=== PATIENT | male | born 1995 | race Caucasian/White ===

== ENCOUNTER 2017-10-29 16:40 | Emergency (ER) | payer MEDICAID, SELFPAY ==
--- NOTE | 2017-10-29 16:40 | DT_ITS ---
This patient was seen during an EMR downtime October 26, 2017 - November 02, 2017. This patient may have a combination of paper and electronic documentation or all paper documentation. All documentation is viewable within the e-chart portion of [facility] for each patient visit.
--- NOTE | 2017-10-29 17:20 | CT_ITS ---
STUDY: CT ABDOMEN AND PELVIS WITHOUT CONTRAST REASON FOR EXAM: Male, 22 years old. Left flank pain RADIATION DOSAGE (If Supplied By Facility): CTDIvol = ( ) mGy, DLP = ( ) mGycm TECHNIQUE: Transaxial images were obtained from the dome of the diaphragm to the symphysis pubis without oral contrast, and without intravenous contrast. Sagittal and coronal images were reconstructed. Individualized dose optimization techniques were used for this CT. COMPARISON: None. FINDINGS: The visualized lung bases are unremarkable. The visualized portions of the heart are within normal limits. Normal liver. Normal gallbladder and extrahepatic biliary system. Normal spleen. Normal pancreas. Normal bilateral adrenal glands. Normal right kidney. There are calculi within the lower pole of the left renal collecting system. There is severe dilatation of the left renal collecting system and hydroureter without ureteral calculus possibly due to recent passage of the stone. Normal visualized stomach. Normal small intestine. Normal colon. The appendix is visualized and appears normal. Normal abdominal aorta. Normal inferior vena cava. Normal retroperitoneum. Normal urinary bladder. Normal abdominal wall. Normal osseous structures. CT/Abdomen/Pelvis without Cont IMPRESSION: Left nephrolithiasis Severe left hydroureteronephrosis without appreciable ureteral calculus of uncertain etiology possibly due to recent passage of a stone however clinical correlation is recommended Electronically Signed: Homero Craig MD at 19:12 EDT , Service support ,
[2017-10-31 12:10] LABS: Bacteria 0 SEEN /hpf (None Seen); Color, Urine Yellow (Yellow); Glucose, Dipstick NEGATIVE (Normal); Ketone-Dipstick Negative (Negative); Leukocyte Esterase-Dipstick Negative /ul (Negative); Mucous, Urine 0 SEEN /hpf (<or=2+); Nitrite-Dipstick Negative (Negative); Occult Blood-Urine 25 /ul (Negative); Protein-Dipstick 15 mg/dl (Negative); Red Blood Cells-Urine 0-5 SEEN /hpf (0-5); Squamous Epithelial Cells - UA 0 SEEN /hpf (0-5); Urine Bilirubin Dipstick Negative (Negative); Urine Clarity Clear (Clear); Urine Urobilinogen Normal (Normal); White Blood Cells 0 SEEN /hpf (0-5)
[2017-10-31 12:43] LABS: AST(SGOT) 32 U/L (15-37); Alanine Aminotransfer ALT/SGPT 24 U/L (16-61); Albumin, Serum 3.8 g/dL (3.2-5.0); Alkaline Phosphatase 79 U/L (45-117); Anion Gap 9 (5-15); BUN 14 mg/dL (7-18); BUN/Creat Ratio 16.1 RATIO (10-20); Calcium,Total 8.7 mg/dL (8.5-10.1); Chloride 107 mmol/L (98-107); Creatinine, Serum 0.87 mg/dL (0.70-1.30); EST Glomerular Filtration Rate 116 mL/min (>60); Est Glom Filt Rate - Afr Amer 141 mL/min (>60); Globulin 3.8 g/dL (2.2-4.2); Glucose 94 mg/dL (74-106); Lipase 151 U/L (73-393); Potassium 4.9 mmol/L (3.5-5.1); Protein, Total 7.6 g/dL (6.4-8.2); Sodium Level 140 mmol/L (136-145)
[2017-10-31 13:49] LABS: Hematocrit 45.6 % (40-54); Mean Corp Hgb Conc 35.1 g/gl (32-36); Mean Corpuscular Hgb 31.5 pg (27.0-32.0); Mean Corpuscular Volume 89.8 fL (80-94); Mean Platelet Vol. 11.1 fl (6.2-12.0); Monocyte% 7.8 % (0-10); Neutrophil % 52.7 % (47-70); POSITIVE COUNT NO; POSITIVE DIFFERENTIAL NO; POSITIVE MORPHOLOGY NO; Platelet Count 270 K/mm3 (150-450); RBC Distribution Width CV 12.6 % (11.6-14.6); RBC Distribution Width SD 41.3 fl (35.1-43.9); Red Blood Count 5.08 M/mm3 (4.6-6.2); White Blood Count 6.1 K/mm3 (4.4-11.0)
[2017-10-31 13:50] LABS: Absolute Lymphocyte Count 1.94 X10^3/ul (0.83-4.51); Absolute Neutrophil Count 3.2 X10^3/uL (2.0-7.7); Basophil# 0.03 X10^3/uL; Basophil% 0.5 % (0-1); Eosinophil# 0.41 X10^3/uL; Eosinophils% 6.8 % (0-5); Lymphocyte # 1.94 X10^3/ul (4.0); Monocyte# 0.47 X10^3/uL
== END 2017-10-29 20:30 | disposition home or self-care (01) ==
LOC: ED 10-30 10:27
PROVIDERS: Emergency Provider Emergency Medicine; Family Provider Family Medicine; PCP Family Medicine
DX: N20.1 Calculus of ureter (principal); Z72.0 Tobacco use
CPT/HCPCS: 36415; 74176; 80053; 81001; 83690; 85025; 87086; 87088; 96361; 96374; 96375; 99283; A4216; J2405

== ENCOUNTER 2019-01-31 00:56 | Emergency (ER) | payer MEDICAID, SELFPAY ==
[2019-01-31 00:57] VITALS: BP 147/93; PULSE 82; RESP 16; TEMP 36.8; O2SAT 98; BMI 26.4
--- NOTE | 2019-01-31 01:37 | ED.RN ---
ANSWERED CALL LIGHT. PT STATES HE DOESN'T WANT TO BE SEEN BY MD HE HAS TO WALK HOME AND GET TO WORK AT 8 SO HE WILL ONLY GET 5 HRS OF SLEEP. EDUCATED PT, PROVIDED EMOTIONAL SUPPORT AND ANSWERED ALL QUESTIONS. PT AMBULATED TO LOBBY WITH A STEADY AND INDEPENDENT GAIT.
== END 2019-01-31 01:37 | disposition left against medical advice (07) ==
LOC: ED 01:51
PROVIDERS: Emergency Provider Emergency Medicine; Family Provider Family Medicine; PCP Family Medicine
DX: R69 Illness, unspecified (principal); Z53.21 Procedure and treatment not carried out due to patient leaving prior to being seen by health care provider
CPT/HCPCS: 99281

== ENCOUNTER 2022-03-30 18:36 | Emergency (ER) | payer MEDICAID, SELFPAY ==
[2022-03-30 18:37] VITALS: BP 132/100; PULSE 73; RESP 16; TEMP 36.3; O2SAT 100; BMI 25.1
--- NOTE | 2022-03-30 18:48 | CT_ITS ---
STUDY: CT ABDOMEN AND PELVIS WITHOUT CONTRAST REASON FOR EXAM: Male, 26 years old. Left flank pain for one day. History of kidney stones. RADIATION DOSAGE (If Supplied By Facility): CTDIvol = ( 6.94 ) mGy, DLP = ( 346.72 ) mGycm TECHNIQUE: Transaxial images were obtained from the dome of the diaphragm to the symphysis pubis without oral contrast, and without intravenous contrast. Sagittal and coronal images were reconstructed. Individualized dose optimization techniques were used for this CT. COMPARISON: October 11, 2016 FINDINGS: The visualized lung bases are unremarkable. The visualized portions of the heart are within normal limits. Normal liver. Normal gallbladder and extrahepatic biliary system. Normal spleen. Normal pancreas. Normal bilateral adrenal glands. Normal right kidney. Normal right ureter. There is enlargement of the left kidney. There is marked dilatation of the renal collecting system and renal pelvis. There is vague density seen within the lower pole collecting system with an adjacent 3 mm nonobstructing calculus density is seen in the region of the UPJ which appears linear in shape with lucent center. This measures 3.2 x 1 x 0.8 cm. The ureter is unremarkable. Normal visualized stomach. Normal small intestine. Normal colon. Question prior appendectomy. Normal abdominal aorta. Normal inferior vena cava. Normal retroperitoneum. Normal urinary bladder. Normal prostate. No pelvic lymphadenopathy. No free air or free fluid is seen within the peritoneal cavity. Normal abdominal wall. Normal osseous structures. CT/Abdomen/Pelvis without Cont IMPRESSION: 1. Distended left renal collecting system with increased density. The degree of distention is similar to the previous examination. There is however now vague high density material in the lower pole collecting system adjacent to a stable calcification as well as renal pelvis. It is uncertain whether this represents calcification or hematoma. 2. Otherwise stable abdominal and pelvic findings Electronically Signed: Gerardo Newberry DO at 20:45 EST Reading Location ID and State: [id number] Tel [phone], Service support ,
[2022-03-30] MEDS: Ketorolac 15 MG/ML Vial IV (18:53)
[2022-03-30] MEDS: Ondansetron 4 MG/2 ML Vial IV (18:53)
[2022-03-30] MEDS: 0.9% Normal Saline 1,000 ML 250 ML IV (18:57)
[2022-03-30 19:41] LABS: Bacteria 0 SEEN /hpf (None Seen); Mucous, Urine 0 SEEN /hpf (<or=2+); Squamous Epithelial Cells - UA 0 SEEN /hpf (0-5)
[2022-03-30 19:42] LABS: Color, Urine Yellow (Yellow); Glucose, Dipstick Normal (Normal); Ketone-Dipstick 15 mg/dl (Negative); Leukocyte Esterase-Dipstick 25 /ul (Negative); Nitrite-Dipstick Negative (Negative); Occult Blood-Urine 250 /ul (Negative); Protein-Dipstick 100 mg/dl (Negative); Specific Gravity, Urine 1.025 (1.002-1.030); Urine Bilirubin Dipstick Negative (Negative); Urine Clarity Cloudy (Clear); Urine Urobilinogen Normal (Normal); Urine pH 6.5 (5.0 - 8.0)
[2022-03-30 19:48] LABS: Red Blood Cells-Urine > 100 SEEN /hpf (0-5); White Blood Cells 0-5 SEEN /hpf (0-5)
--- NOTE | 2022-03-30 19:57 | EDS_ITS ---
HPI History of Present Illness Chief Complaint: Flank Pain Detail of Chief Complaint: Left flank pain radiating to groin Informant: patient Onset/Context/Timing Onset: Today (Earlier today) Context: Sudden Onset Timing: Continuous and Waxes and wanes Quality: Pain Location: Left flank region Current Severity: Moderate Maximum Severity: Severe Worsened by: Nothing Relieved by: Nothing Associated Symptoms Associated Symptoms: Nausea and dark-colored urine Narrative Narrative: Patient is a 26-year-old male who presents with left flank pain rating to his groin. History of renal ureterolithiasis. He apparently was seen 1 week ago at outside facility. He is relocated [place]. He presents with dark-colored urine, left flank pain and nausea. He has no other complaints. He has no allergies. Prior similar symptoms: Yes Recent Illness/Hospitalization: Yes PFSH PFSH Medical History Kidney stones Smoker Home Medications No Known/Unobtainable [No Known Home Medications] 04/26/16 [History Last Taken Unknown] Allergy/AdvReac Type Severity Reaction Status Date / Time No Known Allergies Allergy Verified 03/30/22 18:36 Social History (Updated 03/30/22 @ 19:[address] Dima Silva MD) household members: significant other Smoking Status: Current every day smoker tobacco type: cigarettes substance use type: does not use ROS ROS ED Constitutional Constitutional ED: Denies chills, fever(s), subjective, sweats or weight loss Eyes Eyes: Denies blurry vision, change in vision or diplopia ENT ENT ED: Denies ear pain, rhinorrhea or sore throat Cardiovascular Cardiovascular: Denies chest pain, palpitations or racing heartbeat Respiratory/Chest Respiratory/Chest: Denies cough, dyspnea or dyspnea on exertion Gastrointestinal Gastrointestinal: Reports abdominal pain and nausea; Denies constipation, diarrhea, melena or vomiting Genitourinary Genitourinary ED: Reports other Details: Documented in the HPI narrative ; Denies dysuria, hematuria or urinary frequency Musculoskeletal Musculoskeletal: Denies arthralgias, back pain, myalgias or neck pain Integumentary Denies Abrasions or rash Neurologic Neurologic: Denies headache(s) or paresthesias Hematologic/Lymphatic Hematologic/Lymphatic: Reports none EXAM Physical Exam Const Vital Signs: 03/30/22 18:37 03/30/22 18:42 03/30/22 20:14 Temperature 97.3 F L Temperature Source Temporal Pulse Rate 73 73 Respiratory Rate 16 15 Respiratory Effort Normal Respiratory Pattern Normal Blood Pressure 132/100 H 137/100 H Blood Pressure Mean 110 112 Pulse Ox 100 98 Oxygen Delivery Method Room Air Room Air Positive well nourished, well developed and unkempt Constitutional Narrative: Appears uncomfortable. General Appearance ED: unkempt and well developed; Negative for NAD or pallor HEENT HEENT Narrative: Head is atraumatic normocephalic. Ears normal. Nares patent. Uvula midline. No erythema or exudate of posterior pharynx. Eyes PERRL and EOMs intact bilaterally General Eye ED: Negative for pale conjunctiva or scleral icterus Neck no lymphadenopathy, supple and no JVD Resp normal respiratory effort and clear to auscultation bilaterally Cardio regular rate, regular rhythm, S1 normal heart sound, S2 normal heart sound and no murmurs GI normal to inspection, nondistended, normoactive bowel sounds, non-tender, non- distended and no masses; Negative for hepatosplenomegaly Back/Spine no CVA tenderness Thoracic Spine / Upper Back: Negative for thoracic spinal tenderness Lumbar Spine / Lower Back: Negative for lumbar spinal tenderness Extremity normal to inspection General Extremety ED: Negative for edema or tenderness General Extremity: Negative for edema Neuro oriented x3, CN's II-XII intact bilaterally and no sensory deficits noted Sensorium / Orientation: alert Motor Exam: strength 5/5 throughout Psych mental status grossly normal Appearance: unkempt Skin no rashes or lesions noted, no wounds and skin turgor normal General Skin Exam: Negative for jaundice or pallor MDM MDM MDM Narrative Medical decision making narrative: Patient presents with findings consistent with obstructing ureteral stone. Patient was medicated with IV Toradol and morphine. UA was obtained to assess for blood and rule out infection. Patient does have hematuria with greater than [address] of the flank was ordered to determine size, location and if there is obstruction. Lab Data Attestation: I reviewed the patient's lab results. Lab results narrative: Is normal. Renal function is normal. UA is consistent with hematuria. Labs: Laboratory Results - last 24 hr 03/30/22 03/30/22 03/30/22 18:54 18:54 19:35 WBC 9.2 RBC 4.67 Hgb 14.5 Hct 43.0 MCV 92.1 MCH 31.0 MCHC 33.7 RDW Std Deviation 41.1 RDW Coeff of Whit[place] 12.3 Plt Count 324 MPV 11.0 Immature Gran % (Auto) 0.400 Neut % (Auto) 74.2 H Lymph % (Auto) 14.9 L [place] % (Auto) 6.1 Eos % (Auto) 3.9 Baso % (Auto) 0.5 Absolute Neuts (auto) 6.8 Absolute Lymphs (auto) 1.37 Nucleated RBC % 0 Sodium 138 Potassium 3.5 Chloride 105 Carbon Dioxide 23.0 Anion Gap 10 BUN 11 Creatinine 0.85 Estim Creat Clear Calc 130.54 Est GFR (MDRD) Af Amer 138 Est GFR (MDRD) Non-Af 114 BUN/Creatinine Ratio 12.9 Glucose 88 Calcium 9.0 Urine Color Yellow Urine Clarity Cloudy Urine pH 6.5 Ur Specific [place] 1.025 Urine Protein 100 H Urine Glucose (UA) Normal Urine Ketones 15 H Urine Occult Blood 250 H Urine Nitrite Negative Urine Bilirubin Negative Urine Urobilinogen Normal Ur Leukocyte Esterase 25 H Urine RBC > 100 SEEN Urine WBC 0-5 SEEN Ur Squamous Epith Cells 0 SEEN Urine Bacteria 0 SEEN Urine Mucus 0 SEEN Radiography Diagnostic Testing: Clinical Impression(s) from Imaging Studies Abdomen/Pelvis CT 03/30/22 18:48 IMPRESSION: 1. Distended left renal collecting system with increased density. The degree of distention is similar to the previous examination. There is however now vague high density material in the lower pole collecting system adjacent to a stable calcification as well as renal pelvis. It is uncertain whether this represents calcification or hematoma. 2. Otherwise stable abdominal and pelvic findings Electronically Signed: Gerardo Newberry DO at 20:45 EST Reading Location ID and State: [address] [place] [address] Tel [phone], Service support , CT of the abdomen pelvis without contrast reveals significant hydroureter and hydronephrosis due to a 11 mm to 12 mm proximal ureteral stone. Awaiting formal read by radiologist. The calcification is new from prior. 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 Discharge Plan Triage Chief Complaint: Flank Pain ED Provider: Dima Silva Dx/Rx/DC Orders Clinical Impression: Hydronephrosis concurrent with and due to ureteral stricture, Left ureteral calculus Instructions: Understanding Hydronephrosis Prescriptions: No Action No Known Home Medications Primary Care Provider: Care Physician,No Primary Referrals: Eleno Mcleod MD [Med Staff - Active Staff] - 5-7 Days Care Physician,No Primary [Primary Care Provider] - Disposition Disposition: Home, Self Care
[2022-03-30 20:14] VITALS: BP 137/100; PULSE 73; RESP 15; O2SAT 98
[2022-03-30 20:26] LABS: Absolute Lymphocyte Count 1.37 X10^3/uL (0.83-4.51); Absolute Neutrophil Count 6.8 X10^3/uL (2.0-7.7); Basophil# 0.05 X10^3/uL; Basophil% 0.5 % (0-1); Eosinophil# 0.36 X10^3/uL; Eosinophils% 3.9 % (0-5); Hemoglobin 14.5 g/dL (13.0-16.5); Lymphocyte # 1.37 X10^3/ul (0.83-4.51); Lymphocyte % 14.9 % (19-41); Mean Corp Hgb Conc 33.7 g/dL (32-36); Mean Corpuscular Volume 92.1 fL (80-94); Monocyte# 0.56 X10^3/uL; Monocyte% 6.1 % (0-10); NRBC Flagged by Analyzer 0 % (0-5); Neutrophil # 6.79 X10^3/uL (2.7-7.7); Neutrophil % 74.2 % (47-70); Platelet Count 324 K/mm3 (150-450); RBC Distribution Width CV 12.3 % (11.6-14.6); RBC Distribution Width SD 41.1 fl (35.1-43.9); Red Blood Count 4.67 M/mm3 (4.6-6.2); White Blood Count 9.2 K/mm3 (4.4-11.0)
[2022-03-30 20:44] LABS: Anion Gap 10 (5-15); BUN 11 mg/dL (7-18); BUN/Creat Ratio 12.9 RATIO (10-20); Chloride 105 mmol/L (98-107); Creatinine, Serum 0.85 mg/dL (0.70-1.30); EST Glomerular Filtration Rate 114 mL/min (>60); Est Glom Filt Rate - Afr Amer 138 mL/min (>60); Estimated Creatinine Clearance 130.54 ml/min; Glucose 88 mg/dL (74-106); Potassium 3.5 mmol/L (3.5-5.1); Sodium Level 138 mmol/L (136-145)
[2022-03-30 22:33] VITALS: BP 136/75; PULSE 86; RESP 15; O2SAT 98
== END 2022-03-30 22:35 | disposition home or self-care (01) ==
PROVIDERS: Emergency Provider Emergency Medicine; Visit Provider Emergency Medicine
DX: N20.1 Calculus of ureter (principal); F17.210 Nicotine dependence, cigarettes, uncomplicated
CPT/HCPCS: 74176; 80048; 81001; 85025; 96374; 96375; 99284; J7030; J2405

== ENCOUNTER 2023-01-22 05:06 | Inpatient (IN) | payer MEDICAID, SELFPAY ==
[2023-01-22] VITALS (7 sets, daily range): BP systolic 122–145; BP diastolic 64–97; PULSE 50–78; RESP 12–18; TEMP 36.6–36.8; O2SAT 95–99; BMI 25.8; BMI 25.7
--- NOTE | 2023-01-22 05:21 | ED.VIS.GI ---
HPI HPI - GI History of Present Illness Chief Complaint: Abd Pain Informant: patient Abdominal Pain/Flank Pain Onset: Today and Hours (2) Context: Sudden Onset Timing: Continuous Quality: Cramping Location: Epigastric and Left Flank Worsened by: Nothing Relieved by: Nothing Nausea/Vomiting/Emesis GI Symptom: Negative for Nausea or Vomiting Diarrhea/Melena/Hematochezia GI Symptom: Positive for Diarrhea; Negative for Melena or Hematochezia Stool Quality: Positive for Watery Associated Symptoms Associated Symptoms: Negative for Dysuria, Frequency or Hematuria Narrative Narrative: Patient presents with abdominal pain that began today. Patient states it began approximately 2 hours prior to arrival. Patient states it began rather suddenly. Patient describes it as cramping. Patient states that initially started on the left flank but now it is mainly in the epigastric area. Patient denies any nausea or vomiting. Patient admits to some diarrhea but denies any melena or hematochezia. Patient denies any dysuria, frequency, or hematuria. PFSH PFSH Medical History Kidney stones Smoker Home Medications No Known/Unobtainable [No Known Home Medications] 04/26/16 [History Last Taken Unknown] Allergy/AdvReac Type Severity Reaction Status Date / Time No Known Allergies Allergy Verified 01/22/23 05:11 Surgical History (Updated 01/22/23 @ 05:[address] Simon Chu DO) Hx of lithotripsy Social History household members: significant other Smoking Status: Current every day smoker tobacco type: cigarettes substance use type: does not use ROS ROS ED Constitutional Constitutional ED: Denies chills or fever(s) Eyes Eyes: Denies blurry vision or change in vision ENT ENT ED: Denies rhinorrhea or sore throat Cardiovascular Cardiovascular: Denies chest pain or palpitations Respiratory/Chest Respiratory/Chest: Denies cough or dyspnea Gastrointestinal Gastrointestinal: Reports abdominal pain and diarrhea; Denies nausea or vomiting Genitourinary Genitourinary ED: Denies dysuria or hematuria Musculoskeletal Musculoskeletal: Denies back pain or neck pain Integumentary Denies abscess or rash Neurologic Neurologic: Reports headache(s); Denies weakness Allergic/Immunologic Allergic/Immunologic ED: Denies mouth swelling or urticaria EXAM Physical Exam Const Vital Signs: 01/22/23 05:07 01/22/23 06:35 Temperature 97.9 F 97.9 F Temperature Source Temporal Temporal Pulse Rate 50 L 63 Respiratory Rate 18 16 Blood Pressure 138/97 H 122/85 H Blood Pressure Mean 110 97 Pulse Ox 98 96 Oxygen Delivery Method Room Air Room Air Positive well nourished and well developed General Appearance ED: well developed HEENT Reports moist mucous membranes Neck supple and no JVD Resp normal respiratory effort and clear to auscultation bilaterally Cardio regular rate, regular rhythm and no murmurs GI normal to inspection, nondistended, normoactive bowel sounds Palpation: soft and tender epigastric; Negative for guarding or rebound tenderness present Extremity normal to inspection General Extremety ED: Negative for edema or tenderness General Extremity: Negative for edema Neuro oriented x3, CN's II-XII intact bilaterally and no sensory deficits noted Sensorium / Orientation: alert Motor Exam: strength 5/5 throughout Psych mental status grossly normal Skin no rashes or lesions noted MDM MDM MDM Narrative Medical decision making narrative: Differential diagnosis includes gastritis, pancreatitis, duodenal ulcer, peptic ulcer disease, bowel obstruction, perforation, ureteral calculus, and pyelonephritis. CBC will be obtained to assess for leukocytosis and anemia. Comprehensive metabolic profile will be obtained to assess for hepatic function, renal function, and electrolyte abnormality. Lipase will be obtained to assess for pancreatitis. Urinalysis will be obtained to assess for urinary tract infection. CT scan of the abdomen pelvis will be obtained to assess for ureteral calculus, bowel obstruction, perforation, and pancreatitis.. Lab Data Attestation: I reviewed the patient's lab results. Lab results narrative: CBC was reviewed and was within normal limits. Comprehensive metabolic profile was reviewed. Potassium was slightly low at 3.3. The remainder was within normal limits. Lipase was reviewed and was elevated at 226. Labs: Laboratory Results - last 24 hr 01/22/23 05:07 WBC 7.3 RBC 4.85 Hgb 15.2 Hct 45.7 MCV 94.2 H MCH 31.3 MCHC 33.3 RDW Std Deviation 42.6 RDW Coeff of [place] 12.3 Plt Count 314 MPV 10.5 Immature Gran % (Auto) 0.400 Neut % (Auto) 55.8 Lymph % (Auto) 30.5 [place] % (Auto) 9.8 Eos % (Auto) 3.0 Baso % (Auto) 0.5 Absolute Neuts (auto) 4.1 Absolute Lymphs (auto) 2.23 Nucleated RBC % 0 Sodium 142 Potassium 3.3 L Chloride 107 Carbon Dioxide 28.0 Anion Gap 7 BUN 10 Creatinine 1.01 Estim Creat Clear Calc 108.89 Est GFR (MDRD) Af Amer 113 Est GFR (MDRD) Non-Af 93 BUN/Creatinine Ratio 9.9 L Glucose 101 Calcium 8.8 Total Bilirubin 0.20 AST 19 ALT 33 Alkaline Phosphatase 84 Total Protein 7.4 Albumin 3.7 Globulin 3.7 Albumin/Globulin Ratio 1.0 Lipase 226 H Radiography Diagnostic Testing: Clinical Impression(s) from Imaging Studies Abdomen/Pelvis CT 01/22/23 05:27 IMPRESSION: 1. Similar marked left pelvicaliectasis extending to the proximal left ureter, presumably chronic UPJ obstruction. The previously seen hyperdensities in the left UVJ-proximal ureter, the mild irregular hyperdensity possibly due to blood products, and the stone in the lower pole left kidney are no longer apparent. No convincing urinary tract stone or stone in the bladder. 2. Mildly prominent fluid and gas-filled mid to distal small bowel loops and prominent gas and fluid in the proximal half of the colon may be due to mild ileus or early enterocolitis. No evidence of convincing mechanical obstruction. The descending colon and rectosigmoid are relatively collapsed. 3. Mild mesenteric adenopathy, similar to prior exam. 4. No evidence of appendicitis. 5. 5 mm nodule in the left lower lobe is stable in size and shape compared to March 30, 2022, but this region is not included on earlier exam in 2018. Due to the size less than 6 mm, smooth margins, and lower lobe location no follow-up is necessary. Fleischner Society Guidelines (MacMahon, et al. Radiology 2017; 284(1):228-43) suggest that no follow-up is necessary for patients with a low or high risk of malignancy. Electronically Signed: Bernadette Shen MD at 6:16 EDT , CT scan of the abdomen and pelvis was obtained. There is left hydronephrosis which is similar to previous CT scan. There is mildly prominent fluid and gas-filled loops of bowel and prominent gas and fluid in the proximal half of the colon. This may be too early enterocolitis or mild ileus. This was interpreted by the radiologist was also independently reviewed by myself. Treatment and Re-Evaluation :: Patient was given IV fluids, morphine, and Zofran. Patient states the morphine initially made his pain worse but is now better. Patient was advised of his findings. Patient was advised of the need for admission to the hospital. Patient is agreeable with this. Case will be discussed with the hospitalist for admission. All questions were answered. Discharge Plan Dx/Rx/DC Orders Clinical Impression: Acute pancreatitis, Ileus Disposition Disposition: Acute Care Hospital [facility]
--- NOTE | 2023-01-22 05:27 | CT_ITS ---
EXAM: CT ABDOMEN AND PELVIS WITHOUT INTRAVENOUS CONTRAST CLINICAL INDICATION: Pain TECHNIQUE: Helically acquired images were obtained of the abdomen and pelvis without intravenous contrast. This CT exam was performed using one or more of the following dose reduction techniques: automated exposure control, adjustment of the mA and/or kV according to patient size, and/or use of iterative reconstruction technique. RADIATION DOSE: CTDIvol = 7.62 mGy, DLP = 405.51 mGy-cm. COMPARISON: March 30, 2022. FINDINGS: LOWER THORAX: Unremarkable with the exception of a stable left lower lobe peripheral 5 mm nodule. Lung bases are clear. No cardiomegaly. No significant pericardial effusion. ABDOMEN: LIVER: Unremarkable. Homogeneous. GALLBLADDER AND BILE DUCTS: Unremarkable. No calcified gallstones. No gallbladder distention or wall edema. No intra- or extrahepatic biliary ductal dilation. PANCREAS: Unremarkable. No focal cystic mass. SPLEEN: Unremarkable. Normal size without focal cystic or solid mass. ADRENALS: Unremarkable. No nodules. KIDNEYS AND URETERS: Similar appearance of marked left renal pelvis and calyceal dilatation fairly well-maintained left renal cortical thickness, the left renal pelvis is 6.0 cm AP, presumed chronic UPJ obstruction. No perinephric fluid. Small normal appendix is best seen on sagittal images 60 through 48 and axial images 143 through 151, it contains slight fluid and measures roughly 5 mm including fluid. Normal renal size and position. STOMACH AND BOWEL: Moderate fluid and gas in the stomach and mildly prominent fluid and gas in multiple small bowel loops, moderate gas and mild fluid in the proximal half of the colon. Minimal gas and stool in the descending colon and rectosigmoid. No stomach or bowel distention. No focal inflammatory change. PELVIS: APPENDIX: See above. BLADDER: Unremarkable. REPRODUCTIVE: Unremarkable as visualized. No mass. ABDOMEN and PELVIS: INTRAPERITONEAL SPACE: Unremarkable. No ascites or other fluid collection. No free air. BONES/JOINTS: Unremarkable. No suspicious lytic or blastic abnormality. SOFT TISSUES: Unremarkable. No discrete abdominal or pelvic wall hernia. VASCULATURE: Unremarkable. Abdominal aorta is non-dilated. LYMPH NODES: The numerous small bilateral inguinal lymph nodes appear similar to prior exam. CT/Abdomen/Pelvis without Cont IMPRESSION: 1. Similar marked left pelvicaliectasis extending to the proximal left ureter, presumably chronic UPJ obstruction. The previously seen hyperdensities in the left UVJ-proximal ureter, the mild irregular hyperdensity possibly due to blood products, and the stone in the lower pole left kidney are no longer apparent. No convincing urinary tract stone or stone in the bladder. 2. Mildly prominent fluid and gas-filled mid to distal small bowel loops and prominent gas and fluid in the proximal half of the colon may be due to mild ileus or early enterocolitis. No evidence of convincing mechanical obstruction. The descending colon and rectosigmoid are relatively collapsed. 3. Mild mesenteric adenopathy, similar to prior exam. 4. No evidence of appendicitis. 5. 5 mm nodule in the left lower lobe is stable in size and shape compared to March 30, 2022, but this region is not included on earlier exam in 2018. Due to the size less than 6 mm, smooth margins, and lower lobe location no follow-up is necessary. Fleischner Society Guidelines (MacMahon, et al. Radiology 2017; 284(1):228-43) suggest that no follow-up is necessary for patients with a low or high risk of malignancy. Electronically Signed: Bernadette Shen MD at 6:16 EDT ,
[2023-01-22 05:34] LABS: Absolute Lymphocyte Count 2.23 X10^3/uL (0.83-4.51); Absolute Neutrophil Count 4.1 X10^3/uL (2.0-7.7); Basophil# 0.04 X10^3/uL; Basophil% 0.5 % (0-1); Eosinophil# 0.22 X10^3/uL; Hematocrit 45.7 % (40-54); Hemoglobin 15.2 g/dL (13.0-16.5); Lymphocyte # 2.23 X10^3/ul (0.83-4.51); Lymphocyte % 30.5 % (19-41); Mean Corp Hgb Conc 33.3 g/dL (32-36); Mean Corpuscular Hgb 31.3 pg (27.0-32.0); Mean Corpuscular Volume 94.2 fL (80-94); Mean Platelet Vol. 10.5 fl (6.2-12.0); Monocyte# 0.72 X10^3/uL; Monocyte% 9.8 % (0-10); NRBC Flagged by Analyzer 0 % (0-5); Neutrophil # 4.07 X10^3/uL (2.7-7.7); Neutrophil % 55.8 % (47-70); Platelet Count 314 K/mm3 (150-450); RBC Distribution Width CV 12.3 % (11.6-14.6); RBC Distribution Width SD 42.6 fl (35.1-43.9); Red Blood Count 4.85 M/mm3 (4.6-6.2); White Blood Count 7.3 K/mm3 (4.4-11.0)
[2023-01-22] MEDS: Ondansetron 4 MG/2 ML Vial IV (05:34)
[2023-01-22] MEDS: Morphine 4 MG/ML Syringe IV (05:34)
[2023-01-22] MEDS: 0.9% Normal Saline 1,000 ML 1000 ML IV (05:34)
[2023-01-22 05:50] LABS: AST(SGOT) 19 U/L (15-37); Alanine Aminotransfer ALT/SGPT 33 U/L (16-61); Albumin, Serum 3.7 g/dL (3.2-5.0); Alkaline Phosphatase 84 U/L (45-117); Anion Gap 7 (5-15); BUN 10 mg/dL (7-18); BUN/Creat Ratio 9.9 RATIO (10-20); Calcium,Total 8.8 mg/dL (8.5-10.1); Chloride 107 mmol/L (98-107); Creatinine, Serum 1.01 mg/dL (0.70-1.30); EST Glomerular Filtration Rate 93 mL/min (>60); Est Glom Filt Rate - Afr Amer 113 mL/min (>60); Estimated Creatinine Clearance 108.89 ml/min; Globulin 3.7 g/dL (2.2-4.2); Glucose 101 mg/dL (74-106); Lipase 226 U/L (13-75); Potassium 3.3 mmol/L (3.5-5.1); Protein, Total 7.4 g/dL (6.4-8.2); Sodium Level 142 mmol/L (136-145)
--- NOTE | 2023-01-22 07:06 | NURSING ---
DR CID FOR DR HAAS
--- NOTE | 2023-01-22 07:11 | NURSING ---
MED SURG CID ACUTE PANCREATITIS, ILEUS
--- NOTE | 2023-01-22 07:22 | HP.PCM.HOS_ITS ---
HPI - General General Date of Admission: 01/22/23 Date of Service: 01/22/23 Chief Complaint: Abd pain HPI Narrative AILYN MCKENZIE, is a 27 M with a history of tobacco use and kidney stones who presented to [facility] early in the morning of 01/22/2023 with epigastric pain. He reports he was in his usual health until 2 AM when he woke up with epigastric pain. In the ED he was found to have a lipase of [address] scan demonstrated chronic left-sided hydronephrosis and mildly prominent fluid and gas-filled mid to distal small bowel loops and prominent gas due to mild ileus or early enteric colitis with no mechanical obstruction noted. Lab work- up and vitals otherwise unremarkable. Given his epigastric pain and lipase of 226 hospitalist consulted to admit for pancreatitis. Patient evaluated bedside and reports he woke up with pain at 2 AM around his solar plexus and 2 hours later around 4 AM had diarrhea multiple times and is feeling slightly nauseous, pain is about the same and said he cannot describe it but then later said he feels like it is going to swell and explode. He has not peed since he has been here but said he thinks it is just because he is somewhat dehydrated and not that he cannot pee. Denies eating anything suspicious or any change in eating, no fevers, denies any other complaints at this time. PFSH Medical History Kidney stones Smoker Home Medications No Known/Unobtainable [No Known Home Medications] 04/26/16 [History Last Taken Unknown] Allergy/AdvReac Type Severity Reaction Status Date / Time No Known Allergies Allergy Verified 01/22/23 05:11 Surgical History (Updated 01/22/23 @ 05:[address] Simon Chu DO) Hx of lithotripsy Social History household members: significant other Smoking Status: Current every day smoker tobacco type: cigarettes substance use type: does not use ROS ROS Narrative General: Denies fever/chills HENT: Denies headache, denies stuffy nose, denies sore throat EYES: Denies changes in vision Resp: Denies cough, denies shortness of breath Cardiac: Denies chest pain GI: Epigastric pain that he has difficulty describing any further, had some diarrhea several hours ago, some nausea : Denies changes in urination Extremity: Denies swelling MSK: Denies weakness Neuro: Denies any numbness/tingling Heme: Denies any bleeding or bruising Skin: Denies rashes Psychiatric: No complaints voiced Vital Signs Vital Signs Vital Signs: 01/22/23 05:07 01/22/23 06:35 Temperature 97.9 F 97.9 F Temperature Source Temporal Temporal Pulse Rate 50 L 63 Respiratory Rate 18 16 Blood Pressure 138/97 H 122/85 H Blood Pressure Mean 110 97 Pulse Ox 98 96 Oxygen Delivery Method Room Air Room Air Weight Weight: 79.3 kg Body Mass Index (BMI) 25.8 Physical Exam Narrative General: Alert, oriented, appears slightly uncomfortable HEENT: Atraumatic, normocephalic Eyes: Anicteric, normal conjunctiva, extraocular movements grossly intact Neck: Supple Respiratory: Clear to auscultation bilaterally, normal respiratory effort Cardiovascular: Regular rate and rhythm GI: Mildly distended, softer in lower quadrants and upper quadrants, tender in epigastric region localized with no rebound, guarding, rigidity Extremities: No edema Musculoskeletal: Moving all extremities Neuro: No overt focal neurological deficits Skin: No rashes appreciated Psych: Cooperative Results Lab / Micro Data 01/22/23 05:07 01/22/23 05:07 Labs: Laboratory Results - last 24 hr 01/22/23 05:07: WBC 7.3, RBC 4.85, Hgb 15.2, Hct 45.7, MCV 94.2 H, MCH 31.3, MCHC 33.3, RDW Std Deviation 42.6, RDW Coeff of Whitley 12.3, Plt Count 314, MPV 10.5, Immature Gran % (Auto) 0.400, Neut % (Auto) 55.8, Lymph % (Auto) 30.5, Hubbard % (Auto) 9.8, Eos % (Auto) 3.0, Baso % (Auto) 0.5, Absolute Neuts (auto) 4.1, Absolute Lymphs (auto) 2.23, Nucleated RBC % 0, Sodium 142, Potassium 3.3 L , Chloride 107, Carbon Dioxide 28.0, Anion Gap 7, BUN 10, Creatinine 1.01, Estim Creat Clear Calc 108.89, Est GFR (MDRD) Af Amer 113, Est GFR (MDRD) Non-Af 93, BUN/Creatinine Ratio 9.9 L, Glucose 101, Calcium 8.8, Total Bilirubin 0.20, AST 19, ALT 33, Alkaline Phosphatase 84, Total Protein 7.4, Albumin 3.7, Globulin 3.7, Albumin/Globulin Ratio 1.0, Lipase 226 H Radiology Impression Abdomen/Pelvis CT 01/22/23 05:27 IMPRESSION: 1. Similar marked left pelvicaliectasis extending to the proximal left ureter, presumably chronic UPJ obstruction. The previously seen hyperdensities in the left UVJ-proximal ureter, the mild irregular hyperdensity possibly due to blood products, and the stone in the lower pole left kidney are no longer apparent. No convincing urinary tract stone or stone in the bladder. 2. Mildly prominent fluid and gas-filled mid to distal small bowel loops and prominent gas and fluid in the proximal half of the colon may be due to mild ileus or early enterocolitis. No evidence of convincing mechanical obstruction. The descending colon and rectosigmoid are relatively collapsed. 3. Mild mesenteric adenopathy, similar to prior exam. 4. No evidence of appendicitis. 5. 5 mm nodule in the left lower lobe is stable in size and shape compared to March 30, 2022, but this region is not included on earlier exam in 2018. Due to the size less than 6 mm, smooth margins, and lower lobe location no follow-up is necessary. Fleischner Society Guidelines (MacMahon, et al. Radiology 2017; 284(1):228-43) suggest that no follow-up is necessary for patients with a low or high risk of malignancy. Electronically Signed: Bernadette Shen MD at 6:16 EDT , Assessment & Plan Assessment/Plan (1) Epigastric abdominal pain: (2) Ileus: (3) Tobacco abuse: (4) Pelvicaliectasis: (5) History of kidney stones: (6) Solid nodule of lung less than 6 mm in diameter: PLAN: Plan #Epigastric pain -Patient epigastric pain starting at 2 AM, pancreatitis versus ileus versus enteric colitis -Does have the epigastric pain and his lipase is technically greater than 3 times the upper limit of normal as it is 226 but he is having some nausea and started having nonbloody diarrhea in addition so we will obtain enteric panel as well -Also potentially has mild ileus however patient not actively vomiting, will make n.p.o., suspect that this is secondary to underlying infection and/or pancreatitis -We will make patient n.p.o., fluids, pain control, supportive care #Marked left pelvic caliectasis -On CT reports marked pelvic caliectasis extending to proximal left ureter presumably chronic UPJ obstruction with no active stones noted, this is chronic -Would benefit from following up as an outpatient for further management and treatment #Left lower lobe lung nodule -5mm nodule LLL stable in size and shape since Mar 30, 2022 w/ smooth margines, no f/u necessary per Fleischner guidelines #Tobacco use -Advise cessation -Patient agreeable to nicotine replacement #DVT ppx: Lovenox subcu Steffany Moya MD Time spent in the patient's overall evaluation,decision-making process, review of diagnostic data, adjustment of management, discussion with other providers, nursing nursing and ancillary staff involved in patient's care documentation, 56 minutes Charges/Coding Visit Charges Inpatient E&M: 66875 Init Hosp L2
[2023-01-22 08:25] LABS: Cholesterol 222 mg/dL (200); High Density Lipoprotein 49 mg/dL; Triglycerides 195 mg/dL; Very Low Density Lipoprotein 39 mg/dL (5-40)
[2023-01-22 08:32] LABS: Alcohol, Blood (Medical)-Serum < 3.0 mg/dL
[2023-01-22 09:02] LABS: Bacteria 0 SEEN /hpf (None Seen); Mucous, Urine 0 SEEN /hpf (<or=2+); Squamous Epithelial Cells - UA 0 SEEN /hpf (0-5)
[2023-01-22] MEDS: 0.9% Normal Saline 1,000 ML 200 ML IV ×4 (09:13→21:09)
[2023-01-22 09:16] LABS: Color, Urine Yellow (Yellow); Glucose, Dipstick Normal (Normal); Ketone-Dipstick Negative (Negative); Leukocyte Esterase-Dipstick 25 /ul (Negative); Nitrite-Dipstick Negative (Negative); Occult Blood-Urine 25 /ul (Negative); Protein-Dipstick Negative (Negative); Urine Bilirubin Dipstick Negative (Negative); Urine Clarity Clear (Clear); Urine Urobilinogen Normal (Normal)
[2023-01-22 09:24] LABS: Amphetamine Urine VISTA POSITIVE (<1000 ng/mL); Barbiturate Urine VISTA NEGATIVE (< 200 ng/mL); Benzodiazepine Urine VISTA NEGATIVE (< 200 ng/mL); Cocaine Urine VISTA NEGATIVE (< 300 ng/mL); Ecstacy Urine VISTA NEGATIVE (< 500 ng/mL); Methadone Urine VISTA NEGATIVE (< 300 ng/mL); PCP Urine VISTA NEGATIVE (< 25 ng/mL); THC Urine VISTA NEGATIVE (< 50 ng/mL); Vista UDS pH Range 5
[2023-01-22 09:25] LABS: Red Blood Cells-Urine 0-5 SEEN /hpf (0-5); White Blood Cells 0-5 SEEN /hpf (0-5)
--- NOTE | 2023-01-22 10:07 | CASEMGMT ---
Discharge Planning A list of primary providers including quality and resource use data and consistent with the patient?s preferred geographic region, medical needs, and insurance network was created from patients insurrance website. This list was provided to the RN RASHAWN. Ellen Anderson, Discharge Planning Asst.
--- NOTE | 2023-01-22 10:30 | CASEMGMT ---
RN?CM?WET END TESTER?CM?to room to meet with patient for initial transition planning/care coordination?assessment.?RN?CM?introduced self and role at [facility].? Pt voices understanding and consents to?assessment?at this time.? Pt resting in bed in no distress at this time.? Pt is A/O at this time and answers all questions appropriately.?? Care providers, pharmacy, and demographics verified/updated at this time. PCP: No PCP. Pt provided w/list of local PCP's and list specific for [employer] provided by D/C town planner. Specialists: none at this time. Pt states he was supposed to see a urologist, but has not done so. Preferred Pharmacy: [facility] retail Insurance: [employer] Prescription Benefit:?Yes Living Will/HPOA:?Pt does not currently have LW/HCPOA and declines info at this time.? LNOK: parents: Jasmin and Arnel. Sister, Mer. Johnie-in-law, Nicolas Living Arrangements: Pt was living w/his parents, but has been living w/sisterMer, and bro-in-lawNicolas, for the past month. He plans to discharge back to their home @ d/c. They live in a ground-floor apartment w/1 threshold step to enter. Pt states he is independent w/ADL's and IADL's Transportation:?Pt does not drive. Sister, Mer, provides transportation and will take him home @ d/c. DME: ? Denies using any DME and denies needs.? HHC/SNF: No hx of either. No needs identified. ETOH/smoking/substance: Pt states he does not drink ETOH. He does smoke 1 PPD. 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 When pt's sister and bro-in-law was in to see pt earlier they reported to RN RASHAWN that to the best of their knowledge, it has been about a year since he has been clean and they state they are not aware of pt drinking ETOH. Pt states he does use marijuana rarely but then stated sometimes he goes through spurts where he will use as often as 2-3 x's/week. Pt denies to this RN CM any need of resources for substance use. Pt wishes to return home with family and states has no concerns with going home at time of discharge.? CM?to follow for any discharge planning/needs.? Pt voices no concerns/needs at this time.? Advised pt to ask for?CM?if any further questions/concerns/needs arise.? Voices understanding. PLAN:??Home w/family support and discharge plans in place. Rey BSN?RN?CM
[2023-01-22] MEDS: Morphine 2 MG/ML Syringe IV (10:38)
[2023-01-23 03:00] VITALS: BP 127/82; PULSE 65; RESP 18; TEMP 36.8; O2SAT 99
[2023-01-23] MEDS: 0.9% Normal Saline 1,000 ML 200 ML IV ×2 (04:05→09:58)
[2023-01-23 05:56] LABS: Absolute Lymphocyte Count 1.38 X10^3/uL (0.83-4.51); Basophil# 0.01 X10^3/uL; Basophil% 0.2 % (0-1); Eosinophil# 0.16 X10^3/uL; Eosinophils% 2.6 % (0-5); Hematocrit 41.9 % (40-54); Hemoglobin 13.9 g/dL (13.0-16.5); Lymphocyte # 1.38 X10^3/ul (0.83-4.51); Lymphocyte % 22.4 % (19-41); Mean Corp Hgb Conc 33.2 g/dL (32-36); Mean Corpuscular Hgb 31.2 pg (27.0-32.0); Mean Corpuscular Volume 94.2 fL (80-94); Mean Platelet Vol. 10.8 fl (6.2-12.0); Monocyte# 0.56 X10^3/uL; Monocyte% 9.1 % (0-10); NRBC Flagged by Analyzer 0 % (0-5); Neutrophil # 4.03 X10^3/uL (2.7-7.7); Neutrophil % 65.5 % (47-70); Platelet Count 293 K/mm3 (150-450); RBC Distribution Width CV 12.2 % (11.6-14.6); RBC Distribution Width SD 42.3 fl (35.1-43.9); Red Blood Count 4.45 M/mm3 (4.6-6.2); White Blood Count 6.2 K/mm3 (4.4-11.0)
[2023-01-23 06:56] LABS: AST(SGOT) 14 U/L (15-37); Alanine Aminotransfer ALT/SGPT 22 U/L (16-61); Alkaline Phosphatase 80 U/L (45-117); Anion Gap 5 (5-15); BUN 7 mg/dL (7-18); BUN/Creat Ratio 9.7 RATIO (10-20); Calcium,Total 7.9 mg/dL (8.5-10.1); Chloride 112 mmol/L (98-107); Creatinine, Serum 0.72 mg/dL (0.70-1.30); EST Glomerular Filtration Rate 137 mL/min (>60); Est Glom Filt Rate - Afr Amer 166 mL/min (>60); Estimated Creatinine Clearance 152.75 ml/min; Glucose 91 mg/dL (74-106); Potassium 3.8 mmol/L (3.5-5.1); Sodium Level 141 mmol/L (136-145); Thyroid Stim Hormone (TSH) 0.42 uIU/mL (0.358-3.74)
--- NOTE | 2023-01-23 09:41 | CASEMGMT ---
Social Work Pt indicated to admitting RN does not have LW/POA and declined further information. AUDREY Pritchard
[2023-01-23 09:59] VITALS: BP 131/94; PULSE 70; RESP 18; TEMP 36.3; O2SAT 98
--- NOTE | 2023-01-23 11:28 | DCINST_ITS ---
Discharge Instructions Diet Discharge Diet: Light diet - advance as tolerated Activity Discharge Activity: Return to Normal Activity Follow Up Care Test Results: Test results from this visit will be discussed in further detail at your follow- up appointment, if applicable. Discharge Plan Admission Admit Date/Time: 01/22/23 07:20 Primary Reason for Your Visit: Abdominal pain Attending Provider: Steffany oMya Primary Care Provider: Care Physician,No Primary Instructions Patient Instructions: Pancreatitis Acute Dc Additional Instructions / Restrictions: DISCHARGE INSTRUCTIONS PLEASE READ *Please take this with you to your next doctors appointment* -Given your episode of pancreatitis it is advised that you maintain a low-fat diet and additionally quit smoking and avoid alcohol -Please call your primary care provider's office upon discharge to schedule a hospital follow up within 1 week. -You would benefit from following with urology upon discharge for your chronic left-sided kidney enlargement, contact info below to establish care -If you do not have a primary care physician of list of local primary care physicians can be provided for you upon discharge. Please ask for this list prior to discharge -For any concerning signs or symptoms please call 911 or proceed to the nearest emergency department Discharge Orders/Prescriptions Prescriptions: No Action No Known Home Medications Referrals / Follow Up: Eleno Mcleod MD [Med Staff - Active Staff] - (Urologist) Care Physician,No Primary [Primary Care Provider] - ( -If you do not have a primary care physician of list of local primary care physicians can be provided for you upon discharge. Please ask for this list prior to discharge) Disposition Disposition (needs filled in before D/C Order can be placed): Home, Self Care
--- NOTE | 2023-01-23 11:33 | PCM.DC.SUM ---
Providers Date of Admission: 01/22/23 Date of Discharge: 01/23/23 Primary Care Physician: No Primary Care Phys Reason For Visit: abdominal pain Diagnosis Discharge Diagnosis (1) Epigastric abdominal pain: Status: Acute Code(s): R10.13 - Epigastric pain (2) Ileus: Status: Acute Code(s): K56.7 - Ileus, unspecified (3) Tobacco abuse: Status: Acute Code(s): Z72.0 - Tobacco use (4) Pelvicaliectasis: Status: Acute Code(s): N28.89 - Other specified disorders of kidney and ureter (5) History of kidney stones: Status: Acute Code(s): Z87.442 - Personal history of urinary calculi (6) Solid nodule of lung less than 6 mm in diameter: Status: Acute Code(s): R91.1 - Solitary pulmonary nodule (7) Acute pancreatitis: Status: Acute Code(s): K85.90 - Acute pancreatitis without necrosis or infection, unspecified Plan #Mild pancreatitis #Ileus #Marked left pelvic caliectasis #Left lower lobe lung nodule -5mm nodule LLL stable in size and shape since Mar 30, 2022 w/ smooth margines, no f/u necessary per Fleischner guidelines #Tobacco use Medications at Discharge Home Medications No Known/Unobtainable [No Known Home Medications] 04/26/16 Hospital Course Summary of Care Provided Minutes Spent on Discharge: 32 Hospital Course: Per HPI: AILYN MCKENZIE, is a 27 M with a history of tobacco use and kidney stones who presented to [facility] early in the morning of 01/22/2023 with epigastric pain. He reports he was in his usual health until 2 AM when he woke up with epigastric pain. In the ED he was found to have a lipase of [address] scan demonstrated chronic left-sided hydronephrosis and mildly prominent fluid and gas-filled mid to distal small bowel loops and prominent gas due to mild ileus or early enteric colitis with no mechanical obstruction noted. Lab work-up and vitals otherwise unremarkable. Given his epigastric pain and lipase of 226 hospitalist consulted to admit for pancreatitis. Patient evaluated bedside and reports he woke up with pain at 2 AM around his solar plexus and 2 hours later around 4 AM had diarrhea multiple times and is feeling slightly nauseous, pain is about the same and said he cannot describe it but then later said he feels like it is going to swell and explode. He has not peed since he has been here but said he thinks it is just because he is somewhat dehydrated and not that he cannot pee. Denies eating anything suspicious or any change in eating, no fevers, denies any other complaints at this time. INTERVAL HISTORY: Patient did well with n.p.o. and fluids and advance diet and did well with this. Patient discharged home in stable condition with present discharge instructions: -Given your episode of pancreatitis it is advised that you maintain a low-fat diet and additionally quit smoking and avoid alcohol -Please call your primary care provider's office upon discharge to schedule a hospital follow up within 1 week. -You would benefit from following with urology upon discharge for your chronic left-sided kidney enlargement, contact info below to establish care -If you do not have a primary care physician of list of local primary care physicians can be provided for you upon discharge. Please ask for this list prior to discharge -For any concerning signs or symptoms please call 911 or proceed to the nearest emergency department Physical Exam Narrative General: Alert, oriented, no apparent distress HEENT: Atraumatic, normocephalic Eyes: Anicteric, normal conjunctiva, extraocular movements grossly intact Neck: Supple Respiratory: Clear to auscultation bilaterally, normal respiratory effort Cardiovascular: Regular rate and rhythm GI: Soft, nontender, nondistended Extremities: No edema Musculoskeletal: Moving all extremities Neuro: No overt focal neurological deficits Skin: No rashes appreciated Psych: Cooperative Weight / BMI Weight Weight: 79.016 kg Body Mass Index (BMI) 25.7 ABG / Lab / Microbiology Data 01/23/23 05:10 01/23/23 05:10 Laboratory: Laboratory Results - last 24 hr 01/23/23 05:10: WBC 6.2, RBC 4.45 L, Hgb 13.9, Hct 41.9, MCV 94.2 H, MCH 31.2, MCHC 33.2, RDW Std Deviation 42.3, RDW Coeff of Whitley 12.2, Plt Count 293, MPV 10.8, Immature Gran % (Auto) 0.200, Neut % (Auto) 65.5, Lymph % (Auto) 22.4, Sterling % (Auto) 9.1, Eos % (Auto) 2.6, Baso % (Auto) 0.2, Absolute Neuts (auto) 4.0, Absolute Lymphs (auto) 1.38, Nucleated RBC % 0, Sodium 141, Potassium 3.8, Chloride 112 H, Carbon Dioxide 24.0, Anion Gap 5, BUN 7, Creatinine 0.72, Estim Creat Clear Calc 152.75, Est GFR (MDRD) Af Amer 166, Est GFR (MDRD) Non-Af 137, BUN/Creatinine Ratio 9.7 L, Glucose 91, Calcium 7.9 L, Total Bilirubin 0.60, AST 14 L, ALT 22, Alkaline Phosphatase 80, Total Protein 6.0 L, Albumin 3.0 L, Globulin 3.0, Albumin/Globulin Ratio 1.0, TSH 0.42 Microbiology: Microbiology 01/22/23 08:50 Stool Enteric Bacteriology - Final D/C Instructions Discharge Diet: Light diet - advance as tolerated Meaningful Use Info Meaningful Use Diagnoses (Choose all that apply): None applicable Discharge Plan Admission Admit Date/Time: 01/22/23 07:20 Primary Reason for Your Visit: Abdominal pain Attending Provider: Steffany Moya Primary Care Provider: Care Physician,No Primary Instructions Patient Instructions: Pancreatitis Acute Dc Additional Instructions / Restrictions: DISCHARGE INSTRUCTIONS PLEASE READ *Please take this with you to your next doctors appointment* -Given your episode of pancreatitis it is advised that you maintain a low-fat diet and additionally quit smoking and avoid alcohol -Please call your primary care provider's office upon discharge to schedule a hospital follow up within 1 week. -You would benefit from following with urology upon discharge for your chronic left-sided kidney enlargement, contact info below to establish care -If you do not have a primary care physician of list of local primary care physicians can be provided for you upon discharge. Please ask for this list prior to discharge -For any concerning signs or symptoms please call 911 or proceed to the nearest emergency department Discharge Orders/Prescriptions Prescriptions: No Action No Known Home Medications Referrals / Follow Up: Eleno Mcleod MD [Med Staff - Active Staff] - (Urologist) Care Physician,No Primary [Primary Care Provider] - ( -If you do not have a primary care physician of list of local primary care physicians can be provided for you upon discharge. Please ask for this list prior to discharge) Disposition Disposition (needs filled in before D/C Order can be placed): Home, Self Care Charges/Coding Visit Charges Inpatient E&M: 16168 Disch Hosp >30min
--- NOTE | 2023-01-23 11:51 | CASEMGMT ---
Patient has order for discharge. RN CM in to inquire about needs at discharge. Patient denies needs at discharge. RN CM encouraged patient to review PCP list provided and get established with PCP, patient voiced understanding. Patient had no further questions or concerns at this time.
== END 2023-01-23 12:46 | disposition home or self-care (01) | DRG 282 ==
LOC: ED 06:25 → PCU 08:43
PROVIDERS: Admitting Provider Internal Medicine; Emergency Provider Emergency Medicine; Visit Provider Internal Medicine
DX: K85.90 Acute pancreatitis without necrosis or infection, unspecified (principal); K56.7 Ileus, unspecified; F17.210 Nicotine dependence, cigarettes, uncomplicated; N28.89 Other specified disorders of kidney and ureter; R91.1 Solitary pulmonary nodule; Z87.442 Personal history of urinary calculi
CPT/HCPCS: 36415; 74176; 80053; 80061; 80307; 81001; 82077; 83690; 84443; 85025; 87506; 99285; 99406; J7030; A4216; J2405

== ENCOUNTER 2023-02-21 13:13 | Emergency (ER) | payer MEDICAID, SELFPAY ==
[2023-02-21 13:13] VITALS: BP 136/100; PULSE 67; RESP 16; TEMP 36.5; O2SAT 100; BMI 25.4
--- NOTE | 2023-02-21 13:28 | CT_ITS ---
STUDY: CT ABDOMEN AND PELVIS WITH CONTRAST REASON FOR EXAM: Male, 27 years old. pain, nausea/vomiting, pancreatitis 1 month ago RADIATION DOSAGE (If Supplied By Facility): CTDIvol = ( 14.35 ) mGy, DLP = ( 668.04 ) mGycm TECHNIQUE: Transaxial images were obtained from the dome of the diaphragm to the symphysis pubis without oral contrast. IV 100mL Isovue-370 was administered. Sagittal and coronal images were reconstructed. Individualized dose optimization techniques were used for this CT. COMPARISON: None. FINDINGS: The visualized lung bases are unremarkable. The visualized portions of the heart are within normal limits. Normal liver. Normal gallbladder and extrahepatic biliary system. Normal spleen. Normal pancreas. Normal bilateral adrenal glands. Normal right kidney. No change in severe left-sided hydronephrosis possibly ureteropelvic junction stenosis. Normal visualized stomach. Normal small intestine. Normal colon. The appendix is visualized and appears normal. Normal abdominal aorta. Normal inferior vena cava. Normal retroperitoneum. Normal urinary bladder. Normal abdominal wall. Normal osseous structures. CT/Abdomen/Pelvis W IV Cont ONLY IMPRESSION: No acute abnormality. 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 Electronically Signed: Miky Evans MD at 15:16 EDT ,
[2023-02-21] MEDS: Morphine 4 MG/ML Syringe IV (13:38)
[2023-02-21] MEDS: Ondansetron 4 MG/2 ML Vial IV (13:38)
[2023-02-21] MEDS: 0.9% Normal Saline (1000mL) 1,000 ML 1000 ML IV (13:39)
[2023-02-21 13:42] LABS: Absolute Lymphocyte Count 0.85 X10^3/uL (0.83-4.51); Absolute Neutrophil Count 8.4 X10^3/uL (2.0-7.7); Basophil# 0.03 X10^3/uL; Basophil% 0.3 % (0-1); Eosinophil# 0.21 X10^3/uL; Eosinophils% 2.1 % (0-5); Hematocrit 47.2 % (40-54); Hemoglobin 16.3 g/dL (13.0-16.5); Lymphocyte # 0.85 X10^3/ul (0.83-4.51); Lymphocyte % 8.5 % (19-41); Mean Corp Hgb Conc 34.5 g/dL (32-36); Mean Corpuscular Hgb 32.1 pg (27.0-32.0); Mean Corpuscular Volume 93.1 fL (80-94); Mean Platelet Vol. 10.4 fl (6.2-12.0); Monocyte# 0.51 X10^3/uL; Monocyte% 5.1 % (0-10); NRBC Flagged by Analyzer 0 % (0-5); Neutrophil # 8.44 X10^3/uL (2.7-7.7); Neutrophil % 83.9 % (47-70); Platelet Count 284 K/mm3 (150-450); RBC Distribution Width CV 12.5 % (11.6-14.6); RBC Distribution Width SD 42.7 fl (35.1-43.9); Red Blood Count 5.07 M/mm3 (4.6-6.2); White Blood Count 10.1 K/mm3 (4.4-11.0)
[2023-02-21 13:55] LABS: ALB/GLOB Ratio 1.1 RATIO (0.9-2.4); AST(SGOT) 20 U/L (15-37); Alanine Aminotransfer ALT/SGPT 29 U/L (16-61); Albumin, Serum 3.8 g/dL (3.2-5.0); Alkaline Phosphatase 76 U/L (45-117); Anion Gap 3 (5-15); BUN 15 mg/dL (7-18); BUN/Creat Ratio 14.9 RATIO (10-20); Calcium,Total 8.8 mg/dL (8.5-10.1); Chloride 105 mmol/L (98-107); Creatinine, Serum 1.01 mg/dL (0.70-1.30); EST Glomerular Filtration Rate 93 mL/min (>60); Est Glom Filt Rate - Afr Amer 113 mL/min (>60); Estimated Creatinine Clearance 108.89 ml/min; Globulin 3.6 g/dL (2.2-4.2); Glucose 104 mg/dL (74-106); Lipase 128 U/L (13-75); Potassium 4.4 mmol/L (3.5-5.1); Protein, Total 7.4 g/dL (6.4-8.2); Sodium Level 137 mmol/L (136-145)
[2023-02-21 14:06] LABS: Alcohol, Blood (Medical)-Serum < 3.0 mg/dL
[2023-02-21 14:16] LABS: Lactic Acid 1.2 mmol/L (0.4-1.9)
--- NOTE | 2023-02-21 15:40 | EDS_ITS ---
HPI HPI - GI History of Present Illness Chief Complaint: Abd Pain Informant: patient and spouse/S.O. Narrative Narrative: Presents with abdominal pain nausea vomiting concern for otitis. Patient was admitted about a month ago with pancreatitis. He has been doing great since. Last night he had some deep fried fatty foods. After that he had abdominal cramping discomfort and some vomiting. No fevers. All the discomfort is epigastric. He denies any abdominal surgeries. He has not had fevers. No back or flank pain. The pain has not migrated. Nothing makes it better or worse but he really has no meds at home. He states he has not had any alcohol in over a month. He has never been a heavy drinker. He is on no medicines. He states is not known why he had pancreatitis or at least he was not told. [facility] Medical History Hx of pancreatitis Kidney stones Smoker Solid nodule of lung less than 6 mm in diameter Home Medications dicyclomine 20 mg tablet 20 mg PO TID PRN abdominal pain #10 tabs 02/21/23 [Rx Last Taken Unknown] ondansetron 4 mg disintegrating tablet 4 mg PO Q8H PRN PRN Nausea #10 tabs 02/21/23 [Rx Last Taken Unknown] promethazine 25 mg tablet 25 mg PO Q6H PRN PRN Nausea #10 TABLETS 02/21/23 [Rx Last Taken Unknown] Allergy/AdvReac Type Severity Reaction Status Date / Time No Known Allergies Allergy Verified 02/21/23 13:14 Surgical History Hx of lithotripsy Social History household members: significant other housing: apartment Smoking Status: Current every day smoker tobacco type: cigarettes substance use type: does not use ROS ROS ED ROS Narrative A complete review of systems was performed and is negative except as documented in the history of present illness. Some specific details below. Constitutional: No recent fevers or chills. Feeling fine until he ate the fatty meal last evening EYE: No visual complaints or pain. Change in eye color ENT: No difficulty swallowing. No swelling. No pain. No real GERD symptoms. CV: No chest pain or palpitations. Respiratory: No dyspnea. No hemoptysis. No difficulty taking breaths. GI: Please see history of present illness. : No frequency dysuria or hematuria. Musculoskeletal: No recent trauma. No pains. No back pain. No flank pain. Skin: No rash. Nondiaphoretic. Neuro: No weakness or numbness. Endocrine: No polyuria or polydipsia. EXAM Physical Exam Narrative Exam Narrative: CONSTITUTIONAL: Patient is nontoxic in appearance. The patient looks comfortable. HEENT: No notable trauma. Mucous membranes minimally dry. No sinus tenderness. No indication of pain with swallowing. EYES: No conjunctival injection. No proptosis. CARDIOVASCULAR: Regular rate not tachycardic. Regular rhythm. No notable murmur. No JVD. RESPIRATORY: No respiratory distress. Breathing is unlabored. No wheezes. No rhonchi. No rales. No pain with a deep breath. GASTROINTESTINAL: Not distended. Patient may have some very mild epigastric tenderness. But mostly when I press in the epigastric he states, that is where it hurts. No real objective tenderness. Certainly no rebound or guarding. Bowel sounds are normal. They are not decreased or increased. GENITOURINARY: No tenderness over the bladder. No CVA tenderness. MUSCULOSKELETAL: Atraumatic. No peripheral edema. No cord. No tenderness along the deep venous system. No asymmetry. NEUROLOGICAL: Patient is alert and appropriate. No focal deficit noted. SKIN: No noted rashes. No diaphoresis. PSYCHIATRIC: Patient is calm. Mood is appropriate. Const Vital Signs: 02/21/23 13:13 Temperature 97.7 F L Temperature Source Temporal Pulse Rate 67 Respiratory Rate 16 Blood Pressure 136/100 H Blood Pressure Mean 112 Pulse Ox 100 Oxygen Delivery Method Room Air MDM MDM MDM Narrative Medical decision making narrative: My Independent interpretation of the patient's CT abdomen does not show pancreatic inflammation. Bowels do not look distended. She does have some hydro on the left but when I compare this to the prior study December, it does not appear like it significantly changed. Final reading shows no acute abnormality. No CBC shows no. Patient's electrolytes including renal function and glucose look normal. Patient's lactate is normal. Patient's liver function test are normal. Patient's alcohol is negative. Patient's lipase has a mild elevation at 128. Since recheck. He states he vomited here once but it was when he was moving in the car to CAT scan. He is not nauseated now. Plan will be to have him drink clear liquids. I will give him Phenergan and Zofran for nausea. I will write a few pills for pain. I think he likely has some mild pancreatitis. But his pain is controlled his nausea is controlled, his blood work is unremarkable other than trace elevation of the lipase. His CT does not show any acute process. I think we can try him as an outpatient. We did discuss reasons to return and that if he has further pain, recurrent vomiting, medications are not working he may need to come back in. Also discussed a very bland diet. He should be on clear liquids only for 1 or 2 days. He should then slowly advance. But he should avoid the high fat and high protein and especially deep-fried foods. Lab Data Attestation: I reviewed the patient's lab results. Labs: Laboratory Results - last 24 hr 02/21/23 02/21/23 13:31 13:40 WBC 10.1 RBC 5.07 Hgb 16.3 Hct 47.2 MCV 93.1 MCH 32.1 H MCHC 34.5 RDW Std Deviation 42.7 RDW Coeff of Whitley 12.5 Plt Count 284 MPV 10.4 Immature Gran % (Auto) 0.100 Neut % (Auto) 83.9 H Lymph % (Auto) 8.5 L Ulster % (Auto) 5.1 Eos % (Auto) 2.1 Baso % (Auto) 0.3 Absolute Neuts (auto) 8.4 H Absolute Lymphs (auto) 0.85 Nucleated RBC % 0 Sodium 137 Potassium 4.4 Chloride 105 Carbon Dioxide 29.0 Anion Gap 3 L BUN 15 Creatinine 1.01 Estim Creat Clear Calc 108.89 Est GFR (MDRD) Af Amer 113 Est GFR (MDRD) Non-Af 93 BUN/Creatinine Ratio 14.9 Glucose 104 Lactic Acid 1.2 Calcium 8.8 Total Bilirubin 0.20 AST 20 ALT 29 Alkaline Phosphatase 76 Total Protein 7.4 Albumin 3.8 Globulin 3.6 Albumin/Globulin Ratio 1.1 Lipase 128 H Ethyl Alcohol < 3.0 Radiography Diagnostic Testing: Clinical Impression(s) from Imaging Studies Abdomen/Pelvis CT 02/21/23 13:28 IMPRESSION: No acute abnormality. 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 Electronically Signed: Miky Evans MD at 15:16 EDT , Discharge Plan Triage Chief Complaint: Abd Pain ED Provider: Elfego Espino Dx/Rx/DC Orders Clinical Impression: Hx of pancreatitis, Nausea & vomiting, Abdominal pain Instructions: Abdominal Pain Prescriptions: New promethazine [promethazine] 25 mg tablet 25 mg PO Q6H PRN PRN (Reason: Nausea) Qty: 10 0RF ondansetron [ondansetron] 4 mg tablet,disintegrating 4 mg PO Q8H PRN PRN (Reason: Nausea) Qty: 10 0RF dicyclomine 20 mg tablet 20 mg PO TID PRN (Reason: abdominal pain) Qty: 10 0RF Primary Care Provider: Care Physician,No Primary Referrals: Kat Martinez MD [Med Staff - Supervisor P[employer] Maintenance] - 3-5 Days if not improving Care Physician,No Primary [Primary Care Provider] - Disposition Disposition: Home, Self Care
== END 2023-02-21 16:33 | disposition home or self-care (01) ==
PROVIDERS: Emergency Provider Emergency Medicine; Visit Provider Emergency Medicine
DX: R11.2 Nausea with vomiting, unspecified (principal); R10.13 Epigastric pain; F17.210 Nicotine dependence, cigarettes, uncomplicated
CPT/HCPCS: 74177; 80053; 82077; 83605; 83690; 85025; 96361; 96374; 96375; 99283; J7030; Q9967; A4216; J2405

== ENCOUNTER → 2024-02-17 | Outpatient (CLI) | payer MEDICAID, SELFPAY ==
[2024-02-17 17:35] LABS: Amphetamine Urine VISTA POSITIVE (<1000 ng/mL); Barbiturate Urine VISTA NEGATIVE (< 200 ng/mL); Benzodiazepine Urine VISTA NEGATIVE (< 200 ng/mL); Cocaine Urine VISTA NEGATIVE (< 300 ng/mL); Ecstacy Urine VISTA POSITIVE (< 500 ng/mL); Methadone Urine VISTA NEGATIVE (< 300 ng/mL); PCP Urine VISTA NEGATIVE (< 25 ng/mL); THC Urine VISTA NEGATIVE (< 50 ng/mL); Vista UDS pH Range 5
== END | disposition home or self-care (01) ==
LOC: BIMLAB 15:50
PROVIDERS: PCP Family Medicine; Referring Provider Family Medicine; Visit Provider Family Medicine
DX: F90.9 Attention-deficit hyperactivity disorder, unspecified type (principal)
CPT/HCPCS: 80307

== ENCOUNTER 2024-11-30 05:24 | Emergency (ER) | payer MEDICAID, SELFPAY ==
[2024-11-30 05:26] VITALS: BP 138/104; PULSE 76; RESP 18; TEMP 36.4; O2SAT 100; BMI 27.5
--- NOTE | 2024-11-30 05:27 | ED.VIS.DENTA ---
HPI History of Present Illness Chief Complaint: Dental PFSH PFS Medical History Herpesvirus 2 Kidney disease Hearing problem Hx of pancreatitis Solid nodule of lung less than 6 mm in diameter Smoker Kidney stones Home Medications ?Medication ?Instructions ?Recorded ?Last Taken ?Type amoxicillin 875 mg-potassium 1 tab PO BID #14 tabs 11/30/24 Unknown Rx clavulanate 125 mg tablet Allergy/AdvReac Type Severity Reaction Status Date / Time No Known Allergies Allergy Verified 11/30/24 05:26 Family History Father Alcohol abuse Asthma Anxiety Arthritis Colon cancer Depressed Diabetes Myocardial infarction Heart disease Psychiatric care Seizures CVA (cerebral vascular accident) Thyroid disorder Mother Arthritis Multiple sclerosis Depressed Diabetes Kidney disease Thyroid disorder Sister Anxiety Surgical History Hx of lithotripsy Social History household members: significant other housing: apartment current occupational status: employed current occupation: product development coordinator Smoking Status: Current every day smoker tobacco type: cigarettes alcohol intake: current alcohol intake frequency: holidays/special occasions only substance use type: methamphetamine what type of physical activity do you participate in: walking, bicycling and weight training frequency: daily seatbelt use: always do you feel safe at home: Yes EXAM Physical Exam Const Vital Signs: 11/30/24 05:26 11/30/24 05:35 Temperature 97.5 F L 97.5 F L Temperature Source Oral Pulse Rate 76 70 Respiratory Rate 18 18 Blood Pressure 138/104 H 162/95 H Blood Pressure Mean 115 117 Pulse Ox 100 99 Oxygen Delivery Method Room Air MDM MDM MDM Narrative Medical decision making narrative: HISTORY OF PRESENT ILLNESS: 29-year-old male history of nephrolithiasis, tobacco abuse presents with dental pain. He states [] REVIEW OF SYSTEMS: Pertinent positives: Dental pain Pertinent negatives: Difficulty swallowing, vomiting, neck stiffness, sore throat PHYSICAL EXAM: Nursing triage notes reviewed, Vital signs reviewed Constitutional: please see mdm HENT: MMM, no evidence of dental abscess, no submandibular edema or induration, no tonsillar exudates or erythema, uvula midline, patient was controlling secretions, no drooling, no trimus, no dysphonia. TTP and swelling noted to right mandible. Eyes: Pupils equal round and reactive to light, Extraocular muscles intact Neck: No stridor, no JVD, full neck ROM Lungs: Clear to auscultation, No wheezing or rales. No increased work of breathing, no conversational dyspnea, no accessory muscle use, no nasal flaring. No respiratory distress noted Heart: Regular rate and rhythm, No murmurs, No rubs and No gallops, 2+ distal pulses (radial, femoral, posterior tibial) in all extremities MEDICAL DECISION MAKING: Chief Complaint: Dental pain External records reviewed: Reviewed prior ED encounters Factors affecting care: As per HPI Social determinants of health: [History tobacco abuse History obtained from others: None Consults: None [facility] Narrative: The patient was hemodynamically stable, afebrile, nontoxic-appearing. Exam with right mandibular swelling. No crepitus or bullae. No submandibular swelling or brawny edema. There is dental caries/eroded dentition at approximately tooth #29. No palpable abscess noted. I considered the following differential diagnosis: Dental abscess, ANUG, Ludewig's angina, RPA, LIFT BUILDER WHOLE, dental caries, gingivitis Exam consistent with dental caries and significant tooth erosion likely causing swelling and indolent infection. Patient's airway was intact is not drooling had no signs of neck stiffness. No signs of Lars's angina. He was given oral antibiotics here and a course for the next 7 days along with local dental resources. Strict return precautions were discussed. Shared decision making: I will have a discussion with the patient and or visitors regarding risk/benefits of further testing or admission. They will be made aware of of the risk/benefits inherent in this decision they will be given the opportunity to voice understanding. Impression: 1. Acute dental pain 2. Dental caries Disposition: Discharged This note was generated with [employer] dictation software. It may contain incorrect words, spelling, and punctuation that were not noted in review of the chart prior to signing. Discharge Plan Triage Chief Complaint: Dental ED Provider: Dallas Ornelas Dx/Rx/DC Orders Clinical Impression: Dental caries Instructions: ED Dental Cavity Prescriptions: New amoxicillin-pot clavulanate 875-125 mg tablet 1 tab PO BID Qty: 14 0RF Primary Care Provider: Care Physician,No Primary Referrals: Local Dentist [Other] Activity Restrictions/Additional Instructions: Thank you for trusting us with your care today! Please take Tylenol (2 pills, 650 mg), ibuprofen (2 pills, 400 mg) every 6 hours as needed for pain and fever control. Please take antibiotics until course complete Please return to the emergency department if your symptoms change or worsen. Specifically develop difficulty swallowing, drooling, sore throat, neck stiffness or swelling underneath your jaw. Please follow with a local dentist for further outpatient evaluation and management. A set of dental resources has been provided for you. You are safe to lift heavy objects and continue working. Lifting or increasing pressure in your head neck area would not make your symptoms worse. Not take your antibiotics and that going to the dentist will make your symptoms worse. Print Language: Faroese Disposition Disposition: Home, Self Care Discharge Date/Time: 11/30/24 05:43
[2024-11-30 05:35] VITALS: BP 162/95; PULSE 70; RESP 18; TEMP 36.4; O2SAT 99
== END 2024-11-30 05:43 | disposition home or self-care (01) ==
LOC: ED 05:40
PROVIDERS: Emergency Provider Emergency Medicine; Visit Provider Emergency Medicine
DX: K02.9 Dental caries, unspecified (principal); K08.89 Other specified disorders of teeth and supporting structures; F17.210 Nicotine dependence, cigarettes, uncomplicated
CPT/HCPCS: 99282